=== PATIENT | female | born 1985 | race Caucasian/White ===

== ENCOUNTER 2018-06-28 02:42 | Emergency (ER) | payer OTHER ==
[~2018-06-28] VITALS: Ht 157.5 cm; Wt 68.9 kg
[2018-06-28 02:52] VITALS: Ht 157.5 cm; Wt 68.9 kg
[2018-06-28 04:36] VITALS: BP 131/90
== END 2018-06-28 04:36 | disposition home or self-care (01) ==
LOC: ED 02:42
DX: M94.0 Chondrocostal junction syndrome [Tietze] (principal)
CPT/HCPCS: J1885

== ENCOUNTER 2018-07-03 16:46 | Emergency (ER) | payer OTHER ==
[~2018-07-03] VITALS: Ht 157.5 cm; Wt 66.5 kg
[2018-07-03 17:12] VITALS: Ht 157.5 cm; Wt 66.5 kg
[2018-07-03 19:00] VITALS: BP 149/95
== END 2018-07-03 21:09 | disposition home or self-care (01) ==
LOC: ED 16:46
DX: S09.8XXA Other specified injuries of head, initial encounter (principal); M25.519 Pain in unspecified shoulder; Z98.890 Other specified postprocedural states; Z90.711 Acquired absence of uterus with remaining cervical stump; V49.88XA Car occupant (driver) (passenger) injured in other specified transport accidents, initial encounter; Y93.I9 Activity, other involving external motion; Y92.413 State road as the place of occurrence of the external cause; Y99.8 Other external cause status
CPT/HCPCS: J1885; Q0162